=== PATIENT | female | born 1975 | race Hispanic/Latino ===

== ENCOUNTER 2017-07-18 03:47 | Emergency (ER) | payer OTHER ==
[2017-07-18 04:11] LABS: BASOPHILS % (AUTO) 0.3 % (0.0-5.0); EOSINOPHILS % (AUTO) 0.6 % (0.0-8.0); HEMATOCRIT 40.2 % (36-48); LYMPHOCYTES % (AUTO) 18.4 % (21.0-51.0); MEAN CORPUSCULAR HEMOGLOBIN 25.7 pg (27.0-33.0); MEAN CORPUSCULAR HGB CONC 33.6 g/dL (32.0-36.0); MEAN CORPUSCULAR VOLUME 76.4 fL (79-99); MONOCYTES % (AUTO) 5.2 % (3.0-13.0); NEUTROPHILS % (AUTO) 75.5 % (40.0-77.0); NUCLEATED RED BLOOD CELLS 0.1 % (0.0-0.19); PLATELET COUNT (AUTO) 332 K/uL (130-400); RED BLOOD CELL COUNT(AUTO) 5.26 MIL/uL (4.00-5.50); RED CELL DISTRIBUTION WIDTH 14.2 % (11.0-15.5); WHITE BLOOD COUNT (AUTO) 11.5 K/uL (4.8-10.8)
[2017-07-18] MEDS ORDERED: ONDANSETRON HCL MDV 20ML 2 MG/ML VIAL ONE (04:17)
[2017-07-18] MEDS ORDERED: KETOROLAC TROMETHAMINE 30MG/ML ONE (04:17)
[2017-07-18 04:18] LABS: CREATININE 0.8 mg/dL (0.5-1.5); POTASSIUM 4.1 mmol/L (3.5-5.1)
[2017-07-18 04:25] LABS: ALBUMIN 3.5 g/dL (3.5-5.0); BILIRUBIN,TOTAL 0.4 mg/dL (0.2-1.0); TOTAL PROTEIN, SERUM 8.1 g/dL (6.0-8.3)
[2017-07-18 04:47] LABS: APPEARANCE,URINE Clear (CLEAR); BILIRUBIN,URINE Negative (NEGATIVE); GLUCOSE, URINE (UA) >=1000 mg/dL (NEGATIVE); KETONES,URINE 15 mg/dL (NEGATIVE); LEUKOCYTE ESTERASE ,URINE Negative (NEGATIVE); NITRATE,URINE Negative (NEGATIVE); OCCULT BLOOD,URINE Large (NEGATIVE); PROTEIN,URINE Negative (NEGATIVE)
[2017-07-18 04:50] LABS: COLOR,URINE PINK (YELLOW)
[2017-07-18 04:51] LABS: HCG,QUAL RESULT NEGATIVE (NEGATIVE)
[2017-07-18 04:57] LABS: AMPHET/METH SCREEN,URINE NEGATIVE (NEGATIVE); BARBITURATE SCREEN, URINE NEGATIVE (NEGATIVE); BENZODIAZEPINES SCREEN,URINE NEGATIVE (NEGATIVE); CANNABINOID SCREEN,URINE NEGATIVE (NEGATIVE); COCAINE SCREEN,URINE NEGATIVE (NEGATIVE); OPIATE SCREEN,URINE NEGATIVE (NEGATIVE); PHENCYCLIDINE SCREEN,URINE NEGATIVE (NEGATIVE)
[2017-07-18 05:08] LABS: BACTERIA,URINE None Seen /HPF (None Seen); MUCUS,URINE Few LPF (None Seen); RBC,URINE 26-50 /HPF (0-1); SQUAMOUS EPITHELIAL CELL,UR Few /HPF (0-2)
[2017-07-18] MEDS ORDERED: HYDROCODONE/ACETAMINOPHEN 5/325 MG TAB ONE (05:16)
== END 2017-07-18 06:08 | disposition home or self-care (01) ==
LOC: EDH 03:47
DX: R10.2 Pelvic and perineal pain (principal); G89.29 Other chronic pain; D25.9 Leiomyoma of uterus, unspecified; E11.9 Type 2 diabetes mellitus without complications; Z90.49 Acquired absence of other specified parts of digestive tract
CPT/HCPCS: 36415; 80053; 80305; 81001; 81025; 85025; 96374; 96375; 99284; J1885

== ENCOUNTER 2017-09-15 10:24 | Emergency (ER) | payer OTHER | END 2017-09-15 10:40 | disposition left against medical advice (07) | LOC: EDH 10:24 | DX: Z53.21 Procedure and treatment not carried out due to patient leaving prior to being seen by health care provider (principal) ==

== ENCOUNTER 2017-09-30 17:33 | Emergency (ER) | payer OTHER ==
[2017-09-30] MEDS ORDERED: SODIUM CHLORIDE 0.9% 1000ML 1,000 ML IV ONE (17:57)
[2017-09-30 18:11] LABS: CREATININE 0.9 mg/dL (0.5-1.5); POTASSIUM 4.2 mmol/L (3.5-5.1)
[2017-09-30 18:17] LABS: ALBUMIN 2.9 g/dL (3.5-5.0); BILIRUBIN,TOTAL 0.9 mg/dL (0.2-1.0); TOTAL PROTEIN, SERUM 6.4 g/dL (6.0-8.3)
[2017-09-30 18:22] LABS: BASOPHILS % (AUTO) 0.3 % (0.0-5.0); EOSINOPHILS % (AUTO) 0.2 % (0.0-8.0); HEMATOCRIT 46.8 % (36-48); LYMPHOCYTES % (AUTO) 9.5 % (21.0-51.0); MEAN CORPUSCULAR HEMOGLOBIN 25.1 pg (27.0-33.0); MEAN CORPUSCULAR HGB CONC 32.7 g/dL (32.0-36.0); MEAN CORPUSCULAR VOLUME 76.9 fL (79-99); MONOCYTES % (AUTO) 4.8 % (3.0-13.0); NEUTROPHILS % (AUTO) 85.2 % (40.0-77.0); PLATELET COUNT (AUTO) 242 K/uL (130-400); RED BLOOD CELL COUNT(AUTO) 6.09 MIL/uL (4.00-5.50); RED CELL DISTRIBUTION WIDTH 13.8 % (11.0-15.5)
[2017-09-30 18:56] LABS: APPEARANCE,URINE Cloudy (CLEAR); BILIRUBIN,URINE Small (NEGATIVE); COLOR,URINE Dark Yellow (YELLOW); GLUCOSE, URINE (UA) 500 mg/dL (NEGATIVE); KETONES,URINE 15 mg/dL (NEGATIVE); LEUKOCYTE ESTERASE ,URINE Trace (NEGATIVE); NITRATE,URINE Negative (NEGATIVE); OCCULT BLOOD,URINE Negative (NEGATIVE); PROTEIN,URINE POS 1+ (NEGATIVE)
[2017-09-30 19:29] LABS: MUCUS,URINE Many LPF (None Seen)
[2017-09-30 19:30] LABS: BACTERIA,URINE Few /HPF (None Seen); RBC,URINE None Seen /HPF (0-1)
== END 2017-09-30 19:36 | disposition home or self-care (01) ==
LOC: EDH 17:33
DX: F45.8 Other somatoform disorders (principal); F41.1 Generalized anxiety disorder; E11.9 Type 2 diabetes mellitus without complications; Z90.49 Acquired absence of other specified parts of digestive tract; Z72.0 Tobacco use
CPT/HCPCS: 36415; 80053; 81001; 84703; 85025; 96360; 96361; 99285; J7030

== ENCOUNTER 2017-10-14 12:26 | Emergency (ER) | payer OTHER ==
[2017-10-14] MEDS ORDERED: KETOROLAC TROMETHAMINE 60 MG/2 ML VIAL ONE (12:43)
== END 2017-10-14 14:06 | disposition home or self-care (01) ==
LOC: EDH 12:26
DX: D25.9 Leiomyoma of uterus, unspecified (principal); N94.6 Dysmenorrhea, unspecified; E11.9 Type 2 diabetes mellitus without complications; Z79.84 Long term (current) use of oral hypoglycemic drugs; Z90.49 Acquired absence of other specified parts of digestive tract; Z72.0 Tobacco use
CPT/HCPCS: 96372; 99283; J1885

== ENCOUNTER 2018-01-01 07:25 | Emergency (ER) | payer OTHER ==
[2018-01-01] MEDS ORDERED: KETOROLAC TROMETHAMINE 60 MG/2 ML VIAL ONE (07:58)
[2018-01-01] MEDS ORDERED: ONDANSETRON ODT 4 MG TAB ONE (08:02)
[2018-01-01] MEDS ORDERED: ACETAMINOPHEN-CODEINE ELIXIR 5 ML UDCUP ONE (08:45)
== END 2018-01-01 08:58 | disposition home or self-care (01) ==
LOC: EDH 07:25
DX: N94.6 Dysmenorrhea, unspecified (principal); E11.9 Type 2 diabetes mellitus without complications; Z72.0 Tobacco use
CPT/HCPCS: 96372; 99283; J1885

== ENCOUNTER → 2018-01-08 | Outpatient (CLI) | payer OTHER | END | disposition home or self-care (01) | LOC: RAH 14:05 | PROVIDERS: ATTEND Obstetrics & Gynecology | DX: Z12.31 Encounter for screening mammogram for malignant neoplasm of breast (principal) | CPT/HCPCS: 77067 ==

== ENCOUNTER 2018-02-25 03:40 | Emergency (ER) | payer OTHER ==
[2018-02-25] MEDS ORDERED: KETOROLAC TROMETHAMINE 30MG/ML ONE (04:21)
[2018-02-25] MEDS ORDERED: ONDANSETRON HCL 4 MG/2 ML VIAL ONE (04:21)
== END 2018-02-25 05:40 | disposition home or self-care (01) ==
LOC: EDH 03:40
DX: N94.6 Dysmenorrhea, unspecified (principal); E11.9 Type 2 diabetes mellitus without complications; Z72.0 Tobacco use
CPT/HCPCS: 96374; 96375; 99284; J1885; J2405

== ENCOUNTER 2018-05-16 00:35 | Emergency (ER) | payer OTHER ==
[2018-05-16 01:09] LABS: APPEARANCE,URINE Clear (CLEAR); BILIRUBIN,URINE Negative (NEGATIVE); COLOR,URINE Yellow (YELLOW); GLUCOSE, URINE (UA) >=1000 mg/dL (NEGATIVE); KETONES,URINE 15 mg/dL (NEGATIVE); LEUKOCYTE ESTERASE ,URINE Negative (NEGATIVE); NITRATE,URINE Negative (NEGATIVE); OCCULT BLOOD,URINE Large (NEGATIVE); PROTEIN,URINE Negative (NEGATIVE)
[2018-05-16 01:11] LABS: HCG,QUAL RESULT NEGATIVE (NEGATIVE)
[2018-05-16 01:17] LABS: BASOPHILS % (AUTO) 0.8 % (0.0-5.0); EOSINOPHILS % (AUTO) 0.8 % (0.0-8.0); HEMATOCRIT 38.4 % (36-48); LYMPHOCYTES % (AUTO) 15.8 % (21.0-51.0); MEAN CORPUSCULAR HEMOGLOBIN 23.7 pg (27.0-33.0); MEAN CORPUSCULAR HGB CONC 33.1 g/dL (32.0-36.0); MEAN CORPUSCULAR VOLUME 71.7 fL (79-99); MONOCYTES % (AUTO) 5.4 % (3.0-13.0); NEUTROPHILS % (AUTO) 77.2 % (40.0-77.0); PLATELET COUNT (AUTO) 279 K/uL (130-400); RED BLOOD CELL COUNT(AUTO) 5.36 MIL/uL (4.00-5.50); RED CELL DISTRIBUTION WIDTH 15.1 % (11.0-15.5); WHITE BLOOD COUNT (AUTO) 12.6 K/uL (4.8-10.8)
[2018-05-16 01:17] LABS: AMPHET/METH SCREEN,URINE NEGATIVE (NEGATIVE); BARBITURATE SCREEN, URINE NEGATIVE (NEGATIVE); BENZODIAZEPINES SCREEN,URINE NEGATIVE (NEGATIVE); CANNABINOID SCREEN,URINE NEGATIVE (NEGATIVE); COCAINE SCREEN,URINE NEGATIVE (NEGATIVE); OPIATE SCREEN,URINE POSITIVE (NEGATIVE); PHENCYCLIDINE SCREEN,URINE NEGATIVE (NEGATIVE)
[2018-05-16 01:37] LABS: CREATININE 0.6 mg/dL (0.5-1.5)
[2018-05-16 01:38] LABS: BACTERIA,URINE Rare /HPF (None Seen); RBC,URINE 51-100 /HPF (0-1)
[2018-05-16] MEDS ORDERED: SODIUM CHLORIDE 0.9% 1000ML 1,000 ML IV ONE ×3 (01:38→02:46)
[2018-05-16 01:40] LABS: INR 0.89 (0.85-1.15); PARTIAL THROMBOPLASTIN TIME 25.2 SEC (26.3-35.5); PROTHROMBIN TIME 9.4 SEC (9.6-11.6)
[2018-05-16 01:42] LABS: ALBUMIN 2.8 g/dL (3.5-5.0); BILIRUBIN,TOTAL 0.3 mg/dL (0.2-1.0); TOTAL PROTEIN, SERUM 6.4 g/dL (6.0-8.3)
[2018-05-16] MEDS ORDERED: KETOROLAC TROMETHAMINE 30MG/ML ONE (01:57)
[2018-05-16] MEDS ORDERED: INSULIN HUMULIN R 100 UNIT/ML 3ML ONE (01:58)
== END 2018-05-16 03:53 | disposition home or self-care (01) ==
LOC: EDH 00:35
DX: N94.6 Dysmenorrhea, unspecified (principal); E11.65 Type 2 diabetes mellitus with hyperglycemia; Z90.49 Acquired absence of other specified parts of digestive tract; Z72.0 Tobacco use
CPT/HCPCS: 36415; 80053; 80305; 81001; 81025; 82948 ×2; 85025; 85610; 85730; 96361; 96374; 96375; 99284; J1815; J1885; J7030 ×3

== ENCOUNTER 2018-06-10 01:40 | Emergency (ER) | payer OTHER ==
[2018-06-10 02:41] LABS: BASOPHILS % (AUTO) 0.7 % (0.0-5.0); EOSINOPHILS % (AUTO) 1.3 % (0.0-8.0); HEMATOCRIT 37.3 % (36-48); MEAN CORPUSCULAR HEMOGLOBIN 23.6 pg (27.0-33.0); MEAN CORPUSCULAR HGB CONC 32.6 g/dL (32.0-36.0); MEAN CORPUSCULAR VOLUME 72.4 fL (79-99); MONOCYTES % (AUTO) 5.9 % (3.0-13.0); NEUTROPHILS % (AUTO) 69.1 % (40.0-77.0); NUCLEATED RED BLOOD CELLS 0.1 % (0.0-0.19); PLATELET COUNT (AUTO) 288 K/uL (130-400); RED BLOOD CELL COUNT(AUTO) 5.15 MIL/uL (4.00-5.50); RED CELL DISTRIBUTION WIDTH 14.9 % (11.0-15.5)
[2018-06-10 02:45] LABS: BILIRUBIN,URINE Negative (NEGATIVE); COLOR,URINE Yellow (YELLOW); GLUCOSE, URINE (UA) >=1000 mg/dL (NEGATIVE); KETONES,URINE 15 mg/dL (NEGATIVE); LEUKOCYTE ESTERASE ,URINE Negative (NEGATIVE); NITRATE,URINE Negative (NEGATIVE); OCCULT BLOOD,URINE Large (NEGATIVE); PROTEIN,URINE Negative (NEGATIVE); UROBILINOGEN,URINE 0.2 mg/dL (0.2-1.0)
[2018-06-10 02:51] LABS: CREATININE 0.7 mg/dL (0.5-1.5); POTASSIUM 3.8 mmol/L (3.5-5.1)
[2018-06-10 02:56] LABS: ALBUMIN 2.9 g/dL (3.5-5.0); BILIRUBIN,TOTAL 0.2 mg/dL (0.2-1.0); TOTAL PROTEIN, SERUM 6.5 g/dL (6.0-8.3)
[2018-06-10 03:02] LABS: APPEARANCE,URINE SLIGHTLY CLOUDY (CLEAR)
[2018-06-10 03:12] LABS: BACTERIA,URINE Rare /HPF (None Seen); MUCUS,URINE Many LPF (None Seen); SQUAMOUS EPITHELIAL CELL,UR Moderate /HPF (0-2)
== END 2018-06-10 03:31 | disposition left against medical advice (07) ==
LOC: EDH 01:40
DX: R10.2 Pelvic and perineal pain (principal); R10.9 Unspecified abdominal pain; E11.9 Type 2 diabetes mellitus without complications; Z90.49 Acquired absence of other specified parts of digestive tract
CPT/HCPCS: 36415; 80053; 81001; 82150; 83690; 85025

== ENCOUNTER 2018-07-06 10:51 | Emergency (ER) | payer OTHER ==
[2018-07-06] MEDS ORDERED: KETOROLAC TROMETHAMINE 30MG/ML ONE (11:17)
[2018-07-06] MEDS ORDERED: ONDANSETRON HCL 4 MG/2 ML VIAL ONE (11:17)
[2018-07-06 11:40] LABS: BASOPHILS % (AUTO) 0.9 % (0.0-5.0); EOSINOPHILS % (AUTO) 1.5 % (0.0-8.0); HEMATOCRIT 37.4 % (36-48); LYMPHOCYTES % (AUTO) 21.5 % (21.0-51.0); MEAN CORPUSCULAR HEMOGLOBIN 23.1 pg (27.0-33.0); MEAN CORPUSCULAR HGB CONC 32.1 g/dL (32.0-36.0); MEAN CORPUSCULAR VOLUME 72.2 fL (79-99); NEUTROPHILS % (AUTO) 71.1 % (40.0-77.0); PLATELET COUNT (AUTO) 324 K/uL (130-400); RED BLOOD CELL COUNT(AUTO) 5.18 MIL/uL (4.00-5.50); RED CELL DISTRIBUTION WIDTH 14.6 % (11.0-15.5); WHITE BLOOD COUNT (AUTO) 10.2 K/uL (4.8-10.8)
[2018-07-06 11:52] LABS: CREATININE 0.6 mg/dL (0.5-1.5)
[2018-07-06 12:04] LABS: ALBUMIN 3.2 g/dL (3.5-5.0); BILIRUBIN,TOTAL 0.6 mg/dL (0.2-1.0); POTASSIUM 3.5 mmol/L (3.5-5.1); TOTAL PROTEIN, SERUM 6.9 g/dL (6.0-8.3)
[2018-07-06 12:33] LABS: APPEARANCE,URINE Clear (CLEAR); BILIRUBIN,URINE Negative (NEGATIVE); COLOR,URINE Yellow (YELLOW); GLUCOSE, URINE (UA) TRACE mg/dL (NEGATIVE); KETONES,URINE 15 mg/dL (NEGATIVE); LEUKOCYTE ESTERASE ,URINE Trace (NEGATIVE); NITRATE,URINE Negative (NEGATIVE); OCCULT BLOOD,URINE Large (NEGATIVE); PROTEIN,URINE Negative (NEGATIVE); UROBILINOGEN,URINE 0.2 mg/dL (0.2-1.0)
[2018-07-06 12:42] LABS: HCG,QUAL RESULT NEGATIVE (NEGATIVE)
[2018-07-06 13:00] LABS: BACTERIA,URINE None Seen /HPF (None Seen); RBC,URINE 51-100 /HPF (0-1); SQUAMOUS EPITHELIAL CELL,UR Few /HPF (0-2)
== END 2018-07-06 13:05 | disposition home or self-care (01) ==
LOC: EDH 10:51
DX: G89.29 Other chronic pain (principal); R10.30 Lower abdominal pain, unspecified; R11.0 Nausea
CPT/HCPCS: 36415; 80053; 81001; 81025; 85025; 96374; 96375; 99283; J1885; J2405

== ENCOUNTER 2018-07-06 17:48 | Emergency (ER) | payer OTHER ==
[2018-07-06] MEDS ORDERED: KETOROLAC TROMETHAMINE 30MG/ML ONE (17:54)
== END 2018-07-06 18:19 | disposition home or self-care (01) ==
LOC: EDH 17:48
DX: G89.29 Other chronic pain (principal); R10.84 Generalized abdominal pain; E11.9 Type 2 diabetes mellitus without complications; Z90.49 Acquired absence of other specified parts of digestive tract; Z72.0 Tobacco use
CPT/HCPCS: 96372; 99283; J1885

== ENCOUNTER 2019-01-08 03:21 | Emergency (ER) | payer OTHER | END 2019-01-08 04:06 | disposition home or self-care (01) | LOC: EDH 03:21 | DX: S30.860A Insect bite (nonvenomous) of lower back and pelvis, initial encounter (principal); E11.9 Type 2 diabetes mellitus without complications; Z79.4 Long term (current) use of insulin; Z90.49 Acquired absence of other specified parts of digestive tract; Z72.0 Tobacco use; W57.XXXA Bitten or stung by nonvenomous insect and other nonvenomous arthropods, initial encounter; Y93.89 Activity, other specified; Y92.89 Other specified places as the place of occurrence of the external cause; Y99.8 Other external cause status | CPT/HCPCS: 99281 ==

== ENCOUNTER → 2020-08-29 | Outpatient (CLI) | payer OTHER | END | disposition home or self-care (01) | LOC: RAH 09:36 | PROVIDERS: ATTEND Family Medicine | DX: Z12.31 Encounter for screening mammogram for malignant neoplasm of breast (principal) | CPT/HCPCS: 77067 ==

== ENCOUNTER → 2021-01-23 | Outpatient (CLI) | payer OTHER ==
[~2021-01-23] MED LIST: REGADENOSON 0.4 MG/5 ML PF SYG IVP SCH
== END | disposition home or self-care (01) ==
LOC: RAH 08:53
PROVIDERS: ATTEND Student in an Organized Health Care Education/Training Program
DX: R07.89 Other chest pain (principal)
CPT/HCPCS: 78452; 93017; 96374; A9500 ×2; J2785

== ENCOUNTER → 2022-09-20 | Outpatient (CLI) | payer OTHER | END | disposition home or self-care (01) | LOC: RAH 13:22 | PROVIDERS: ATTEND Student in an Organized Health Care Education/Training Program | DX: Z12.31 Encounter for screening mammogram for malignant neoplasm of breast (principal); R92.1 Mammographic calcification found on diagnostic imaging of breast | CPT/HCPCS: 77067 ==

== ENCOUNTER → 2024-05-13 | Outpatient (CLI) | payer OTHER, SELFPAY ==
--- NOTE | 2024-05-14 09:36 | HMCIMG ---
SCREENING MAMMOGRAM REASON: Annual Exam COMPARISON: 09/20/2022 TECHNIQUE: CC and MLO views of the bilateral breasts were performed.CAD was performed as well. FINDINGS: Parenchymal density: The breasts are heterogeneously dense, which may obscure small masses. There are no focal mass lesions. There are no pathologic appearing calcifications. There is no evidence of architectural distortion or skin thickening. IMPRESSION: Normal screening mammogram The patient was entered into a reminder system with a target due date for their next mammogram. BI-RADS CATEGORY 1: NEGATIVE Recommend monthly self breast exam as well as annual clinical examination. A negative x-ray should not delay biopsy if a dominant or clinically suspicious mass is present, since 8-10% of cancers are not identified by mammography. Dense breasts particularly, may obscure an underlying neoplasm. Some of these may be detected clinically and therefore, clinical examination is an essential part of breast evaluation.
== END | disposition home or self-care (01) ==
LOC: RAH 14:59
PROVIDERS: ATTEND Family Medicine
DX: Z12.31 Encounter for screening mammogram for malignant neoplasm of breast (principal); R92.323 Mammographic fibroglandular density, bilateral breasts
CPT/HCPCS: 77067

== ENCOUNTER → 2024-07-09 | Outpatient (CLI) | payer OTHER | END | disposition home or self-care (01) | LOC: RAH 08:45 | PROVIDERS: ATTEND Family Medicine | DX: Z13.6 Encounter for screening for cardiovascular disorders (principal) | CPT/HCPCS: 75571 ==

== ENCOUNTER 2024-09-04 18:01 | Emergency (ER) | payer MEDICARE, OTHER ==
[~2024-09-04] VITALS: Ht 162.6 cm; Wt 80.3 kg
--- NOTE | 2024-09-04 18:12 | ERN ---
ED Note History of Present Illness Stated Complaint: TINGLING SENSATION ON LEFT SIDE OF FACE Chief Complaint: Numbness Time Seen by MD: 18:04 Dictation: PATIENT IS A 49-YEAR-OLD FEMALE COMING IN VIA EMS WITH COMPLAINTS OF TINGLING TO HER FACE BILATERALLY SHE HAD ONSET 17:00 HOURS. SHE HAS NO HEADACHE NO NAUSEA VOMITING NEUROLOGICALLY INTACT NIH IS 0. NIH WAS 0 ON APPROACH BY EMS WHEN THEY PICKED HER UP. SHE STATES I THINK IT COULD BE MY BLOOD SUGAR HAS BEEN ELEVATED AND I HAVE BEEN TAKING MY MANJAROU LIKE HIM SUPPOSED TO. Allergies: Coded Allergies: No Known Allergies (Unverified Allergy, Unknown, 01/08/19) Past Medical History History: Not Applicable RN Note Reviewed/Agreed w/PFSH: Yes Review of System Dictation CONSTITUTIONAL: NEGATIVE EXCEPT FOR HPI HEAD/FACE: NEGATIVE EXCEPT FOR HPI EENT: NEGATIVE EXCEPT FOR HPI RESPIRATORY: NEGATIVE EXCEPT FOR HPI GASTROINTESTINAL/ABDOMINAL: NEGATIVE EXCEPT FOR HPI GENITOURINARY: NEGATIVE EXCEPT FOR HPI MUSCULOSKELETAL: NEGATIVE EXCEPT FOR HPI INTEGUMENTARY: NEGATIVE EXCEPT FOR HPI NEUROLOGICAL/PSYCH: NEGATIVE EXCEPT FOR HPI TINGLING TO BILATERAL FACE HEMATOLOGIC/LYMPHATIC: NEGATIVE EXCEPT FOR HPI ALL SYSTEMS NEGATIVE, EXCEPT NOTED ABOVE. 13 POINT REVIEW OF SYSTEMS ASSESSED AND ALL NEGATIVE EXCEPT FOR ABOVE. Initial Vital Sign VS Vital Signs Date Time Temp Pulse Resp B/P (MAP) Pulse Ox O2 Delivery O2 Flow Rate FiO2 09/04/24 18:03 98.1 69 17 121/78 96 Room Air 0 09/04/24 18:28 21 Physical Exam Dictation VITAL SIGNS REVIEWED GENERAL APPEARANCE: ALERT, ORIENTED X 3, NO ACUTE DISTRESS, WELL DEVELOPED, NOURISHED. OBESE HEAD AND FACE: NON-TRAUMATIC. EYES: PERRL, PINK CONJUNCTIVAS, EYELID NO TRAUMA, ANTERIOR CHAMBER WITH ARCUS SENILIS. EARS: PINNAS INTACT AND NO SIGNS OF TRAUMA OR ERYTHEMA EAR CANALS CLEAR AND NO DISCHARGE TM NO ERYTHEMA NOSE: NO DISCHARGE, NO BLEEDING. OROPHARYNX: MOUTH NORMAL, TONGUE PINK, PHARYNX CLEAR,NO ERYTHEMA, TONSILS NO EXUDATES, NO ABSCESSES NOTED, MUCOUS MEMBRANE MOIST NECK: SUPPLE, NON-TENDER, NO THYROMEGALY, NO MASSES, NO JVD, NO BRUITS BREAST:DEFERRED CHEST:NO TENDERNESS, NO CREPITUS, NO PARADOXICAL MOVEMENT, NO RETRACTIONS LUNGS:CLEAR, WELL-VENTILATED, SYMMETRIC, NO RALES, NO WHEEZING, NO RHONCHI, NO STRIDOR, GOOD BREATH SOUNDS BILATERALLY HEART: REGULAR RATE, REGULAR RHYTHM, NO MURMUR, NO GALLOPS VASCULAR: NO PERIPHERAL EDEMA, ABDOMEN: SOFT, POSITIVE BOWEL SOUNDS, NONDISTENDED, NO GUARDING, NONTENDER, NO REBOUND, NO MASSES NO HEPATOMEGALY, NO SPLENOMEGALY, NO MARINELLI'S SIGN, NO HERNIAS. RECTAL: DEFERRED GENITAL: DEFERRED NEUROLOGICAL: NORMAL SPEECH, MOTOR FUNCTION INTACT, SENSORY FUNCTION INTACT NIH IS 0, PATIENT IS INTACT MUSCULOSKELETAL: NECK NONTENDER, FULL RANGE OF MOTION, BACK NONTENDER, FULL RANG E OF MOTION, EXTREMITIES: NONTENDER, FULL RANGE OF MOTION SKIN: COLOR PINK, DRY, NO TURGOR, NO RASH, NO LACERATIONS, NO ABRASIONS, NO CONTUSIONS. LYMPHATIC: DEFERRED Results (Laboratory/Radiology) Laboratory/Radiology Laboratory Tests Test 09/04/24 18:20 09/04/24 18:27 Urine Color ORANGE (YELLOW) H Urine Appearance CLEAR (CLEAR) Urine pH 5.5 (5.0-8.0) Urine Specific [place] 1.025 (1.001-1.031) Urine Protein TRACE mg/dL (NEGATIVE) H Urine Glucose (UA) >=1000 mg/dL (NEGATIVE) H Urine Ketones 5 mg/dL (NEGATIVE) H Urine Occult Blood NEGATIVE (NEGATIVE) Urine Nitrate SEE NOTE (NEGATIVE) Urine Bilirubin NEGATIVE mg/dL (NEGATIVE) Urine Urobilinogen 1.0 mg/dL (0.2-1.0) Urine Leukocyte Esterase NEGATIVE Justina/uL Urine RBC 0-1 /HPF (0-1) Urine WBC 2-5 /HPF (0-1) H Urine Squamous Epithelial Cells Few /HPF (0-2) Urine Bacteria Few /HPF (None Seen) White Blood Count 7.5 K/uL (4.8-10.8) Red Blood Count 5.33 MIL/uL (4.00-5.50) Hemoglobin 15.3 g/dL (12.0-16.0) Hematocrit 43.9 % (36-48) Mean Corpuscular Volume 82.4 fL (79-99) Mean Corpuscular Hemoglobin 28.7 pg (27.0-33.0) Mean Corpuscular Hemoglobin Concent 34.9 g/dL (32.0-36.0) Red Cell Distribution Width 12.1 % (11.0-15.5) Platelet Count 278 K/uL (130-400) Mean Platelet Volume 9.9 fL (7.5-10.5) Immature Granulocyte % (Auto) 0.4 % (0-1) Neutrophils (%) (Auto) 68.2 % (40.0-77.0) Lymphocytes (%) (Auto) 22.8 % (21.0-51.0) Monocytes (%) (Auto) 7.1 % (3.0-13.0) Eosinophils (%) (Auto) 1.1 % (0.0-8.0) Basophils (%) (Auto) 0.4 % (0.0-5.0) Neutrophils # (Auto) 5.1 K/uL (1.8-7.7) Lymphocytes # (Auto) 1.7 K/uL (1.0-4.8) Monocytes # (Auto) 0.5 K/uL (0.1-1.0) Eosinophils # (Auto) 0.08 K/uL (0.00-0.70) Basophils # (Auto) 0.03 K/uL (0.00-0.20) Absolute Immature Granulocyte (auto 0.03 K/uL (0-1) Nucleated Red Blood Cells 0.0 % (0.0-0.19) Sodium Level 134 mmol/L (136-145) L Potassium Level 3.6 mmol/L (3.5-5.1) Chloride Level 99 mmol/L (101-111) L Carbon Dioxide Level 28 mmol/L (21-32) Blood Urea Nitrogen 12 mg/dL (7-18) Creatinine 0.5 mg/dL (0.5-1.0) Glomerular Filtration Rate Calc 116 mL/min (>90) Random Glucose 262 mg/dL (70-105) H Total Calcium 9.0 mg/dL (8.5-10.1) Labs Reviewed?: Yes ED Course ED Course Orders Procedure Category Date Status Time Cbc With Differential LAB 09/04/24 Complete 18:10 Urinalysis Profile LAB 09/04/24 Complete 18:10 0.9%Nacl 1000ml (Ns PHA 09/04/24 Complete 1000ml) 18:30 Basic Metabolic Panel LAB 09/04/24 Complete 18:10 Current Medications Medications (Trade) Dose Ordered Sig/Trent Route PRN Reason Start Time Stop Time Status Last Admin Dose Admin Sodium Chloride 1,000 ml @ 0 mls/hr ONCE ONCE IV 09/04/24 18:30 09/04/24 18:31 DC 09/04/24 18:41 Vital Signs Date Time Temp Pulse Resp B/P (MAP) Pulse Ox O2 Delivery O2 Flow Rate FiO2 09/04/24 18:28 98.1 74 16 93/74 97 Room Air* 0 21 09/04/24 18:03 98.1 69 17 121/78 96 Room Air 0 1910/PATIENT IS AWARE THAT SHE HAS A HYPERGLYCEMIA WITH A BLOOD SUGAR 262. NO STROKE-LIKE SYMPTOMS AND NIH REMAINS 0. PATIENT STATES SHE HAS MANJARO AND METFORMIN AT HOME HOWEVER SHE FOR DEX TO TAKE IT SOMETIMES. STATES SHE HAS A AN APPOINTMENT AT [facility] WITH HER PRIMARY CARE DOCTOR NEXT WEEK. ALL QUESTIONS ANSWERED AT THE BEDSIDE Medical Decision Making MDM MEDICAL DISCHARGE MAKING BASED ON NIH SCALE AND BASIC LABS. NIH IS [address] OF THE HEAD INDICATED PATIENT DISCHARGED HOME WITH A NIH OF 0 SHE IS AWARE THAT SHE IS HYPERGLYCEMIC AND STATES SHE HAS BEEN NONCOMPLIANT WITH HER MEDICATIONS. EVEN THOUGH SHE HAS A AT HOME PATIENT IS STRONGLY ENCOURAGED TO TAKE HER MEDICATIONS AT HOME DIRECTED FOLLOW A DIABETIC DIET AND SEE HER DOCTOR AT [facility] NEXT WEEK. DX & DISP Disposition: Discharge Departure Impression: Primary Impression: Facial paresthesia Additional Impressions: Diabetes mellitus with hyperglycemia, Hyponatremia, Hypochloremia, Noncompliance with medication regimen Condition: Stable Additional Instructions: FOLLOW-UP WITH PRIMARY CARE PROVIDER IN 1 TO 2 DAYS. TAKE MEDICATIONS DIRECTED HERE IN THE EMERGENCY ROOM. OKAY TO CONTINUE HOME MEDICATIONS UNLESS OTHERWISE DISCUSSED DURING YOUR VISIT IN THE EMERGENCY ROOM TODAY. RETURN TO YOUR NEAREST EMERGENCY ROOM IF SYMPTOMS WORSEN OR IF THERE IS NO IMPROVEMENT. CALL 911 IF YOU NEED IMMEDIATE ASSISTANCE. TAKE TYLENOL OR MOTRIN [id number] NEEDED AND IF NO CONTRAINDICATIONS ARE PRESENT. INCREASE ORAL HYDRATION. A WOUND CULTURE OR URINE CULTURE WAS ORDERED HERE IN THE EMERGENCY ROOM DEPARTMENT PLEASE FOLLOW-UP WITH PRIMARY CARE PROVIDER AND ADVISE THEM TO GET REPEAT PORTS FROM OUR FACILITY. IF YOU HAD ANY FREDDY WRAP/SPLINTS THAT WERE APPLIED HERE, PLEASE DO NOT REMOVE THEM UNTIL YOU SEE YOUR PRIMARY CARE OR SPECIALTY. TAKE YOUR DIABETIC MEDICATIONS FROM YOUR DOCTOR DIRECTED. FOLLOW UP WITH YOUR DOCTOR AT [facility] NEXT WEEK. FOLLOW A DIABETIC DIET Referrals: EMERY HOWELL (PCP) Time of Disposition: 19:19 I have reviewed the case, and I agree with, Diagnosis and Plan SHAQUILLE GAO NP September 04, 2024 18:12
[2024-09-04 18:28] VITALS: TEMP 98
[2024-09-04 18:29] LABS: BILIRUBIN,URINE NEGATIVE (NEGATIVE); GLUCOSE, URINE (UA) >=1000 mg/dL (NEGATIVE); KETONES,URINE 5 mg/dL (NEGATIVE); LEUKOCYTE ESTERASE ,URINE NEGATIVE Leu/uL (NEGATIVE); OCCULT BLOOD,URINE NEGATIVE (NEGATIVE); PH,URINE 5.5 (5.0-8.0); PROTEIN,URINE TRACE mg/dL (NEGATIVE)
[2024-09-04 18:32] LABS: APPEARANCE,URINE CLEAR (CLEAR); COLOR,URINE ORANGE (YELLOW)
[2024-09-04 18:36] LABS: BASOPHILS # (AUTO) 0.03 K/uL (0.00-0.20); BASOPHILS % (AUTO) 0.4 % (0.0-5.0); EOSINOPHILS # (AUTO) 0.08 K/uL (0.00-0.70); EOSINOPHILS % (AUTO) 1.1 % (0.0-8.0); HEMATOCRIT 43.9 % (36-48); IMMATURE GRANULOCYTE ABSOLUTE 0.03 K/uL (0-1); LYMPHOCYTES # (AUTO) 1.7 K/uL (1.0-4.8); LYMPHOCYTES % (AUTO) 22.8 % (21.0-51.0); MEAN CORPUSCULAR HEMOGLOBIN 28.7 pg (27.0-33.0); MEAN CORPUSCULAR HGB CONC 34.9 g/dL (32.0-36.0); MEAN CORPUSCULAR VOLUME 82.4 fL (79-99); MONOCYTES # (AUTO) 0.5 K/uL (0.1-1.0); MONOCYTES % (AUTO) 7.1 % (3.0-13.0); NEUTROPHILS # (AUTO) 5.1 K/uL (1.8-7.7); NEUTROPHILS % (AUTO) 68.2 % (40.0-77.0); PLATELET COUNT (AUTO) 278 K/uL (130-400); RED BLOOD CELL COUNT(AUTO) 5.33 MIL/uL (4.00-5.50); RED CELL DISTRIBUTION WIDTH 12.1 % (11.0-15.5); WHITE BLOOD COUNT (AUTO) 7.5 K/uL (4.8-10.8)
[2024-09-04 18:37] LABS: ADD UA MICROSCOPIC YES
[2024-09-04] MEDS: 0.9%NACL 1000ML 1,000 ML IV ONE (18:41)
[2024-09-04 18:42] LABS: RBC,URINE 0-1 /HPF (0-1)
[2024-09-04 18:43] LABS: BACTERIA,URINE Few /HPF (None Seen); SQUAMOUS EPITHELIAL CELL,UR Few /HPF (0-2)
[2024-09-04 18:50] LABS: CREATININE 0.5 mg/dL (0.5-1.0); POTASSIUM 3.6 mmol/L (3.5-5.1)
[2024-09-04 19:22] VITALS: BP 114/63; PULSE 85; RESP 16; O2SAT 97
== END 2024-09-04 19:58 | disposition home or self-care (01) ==
LOC: EDH 18:01
DX: R20.2 Paresthesia of skin (principal); E11.65 Type 2 diabetes mellitus with hyperglycemia; E87.1 Hypo-osmolality and hyponatremia; E87.8 Other disorders of electrolyte and fluid balance, not elsewhere classified; Z91.148 Patient's other noncompliance with medication regimen for other reason
CPT/HCPCS: 99284; 96360; 80048; 85025; 81001; 36415; J7030